=== PATIENT | female | born 1950 | race Caucasian/White ===

== ENCOUNTER 2017-08-28 10:55 | Day surgery (SDC) | payer OTHER ==
[~2017-08-28] VITALS: Ht 157.5 cm; Wt 69.9 kg
[~2017-08-28 10:55] MED LIST: ATOR20TA50 PO; BACL10TA PO; HYDR-4683 PO; IODIXANOL 320MG/ML 100ML BTL IV ONE; LIDOCAINE 2%HCL (LOCAL ANESTH.) INJ 20ML MDV ONE; PAR20T PO; TRAZ50TA2 PO; TRIA75TA55 PO
[2017-08-28] MEDS ORDERED: VERAPAMIL 2.5MG/ML INJ 2ML VIAL IV ONE (12:44)
[2017-08-28] MEDS ORDERED: MIDAZOLAM HCL 1MG/1ML-2 ML VIAL ONE (12:44)
[2017-08-28] MEDS ORDERED: fentaNYL CITRATE 100 MCG/2 ML VL ONE (12:44)
[2017-08-28] MEDS ORDERED: SODIUM CHL 0.9% 0 ML ONE (12:52)
[2017-08-28] MEDS ORDERED: ANGIOMAX 250 MG VIAL IV ONE (12:52)
[2017-08-28] MEDS ORDERED: HEPARIN 1,000 UNITS/ml 1ML VIAL ONE (13:06)
== END 2017-08-28 15:35 | disposition home or self-care (01) ==
LOC: CATH 10:55
PROVIDERS: ATTEND Internal Medicine
DX: I25.10 Atherosclerotic heart disease of native coronary artery without angina pectoris (principal); I99.8 Other disorder of circulatory system; E66.9 Obesity, unspecified; Z68.28 Body mass index [BMI] 28.0-28.9, adult; I10 Essential (primary) hypertension; E78.5 Hyperlipidemia, unspecified; E11.9 Type 2 diabetes mellitus without complications
CPT/HCPCS: 93458; C1769; C1894; J1644; J2250; J3010; J7030; Q9967; 99152

== ENCOUNTER → 2024-11-30 | Outpatient (CLI) | payer OTHER ==
[~2024-11-30] VITALS: Ht 160 cm; Wt 70.8 kg
[~2024-11-30] MED LIST changes: -HYDR-4683 PO; +HYDR-4833 PO; -IODIXANOL 320MG/ML 100ML BTL IV ONE; -LIDOCAINE 2%HCL (LOCAL ANESTH.) INJ 20ML MDV ONE; +TRAZ-227 PO; -TRAZ50TA2 PO
[2024-11-30] MEDS: REGADENOSON 0.4 MG/5 ML SYRG IV ONE ×2 (10:13→10:14)
--- NOTE | 2024-12-01 13:14 | DVHSR ---
APPROVED REPORT Exam: Nuclear Stress Test Indication: Chest Pain BMI: 0 Medical History Medical History: DM, High cholesterol, HTN, CHF, CVA Stress Test Details Stress Test: Pharmacologic stress testing performed using 0.4 mg of regadenoson per 5 mL given IV ov er 10 seconds. HR Resting HR: 66 bpmMax Heart Rate (APMHR): 148.878176 bpm Max HR Achieved: 95 bpmTarget HR (85% APMHR): 125.268634 bpm % of APMHR: 64.19 Recovery HR: 75 bpm BP Resting BP: 138/57 mmHg Recovery BP: 116/67 mmHg ECG Resting ECG: Sinus Rhythm Clinical Reason for Termination: Completed protocol Stress ECG Conclusion lvef 84% normal perfusion no severe ischemia noted NM EXAM: Myocardial Perfusion REST/STRESS Imaging Protocol: Rest Tc-99m/Stress Tc-99m 1 day Resting Data Rest SPECT myocardial perfusion imaging was performed in supine position 45 minutes following the int ravenous injection of 12.4 mCi of Tc-99m Sestamibi. Time of rest injection: 09:20 Date: 11/30/2024 Time of rest imagin:05 Date: 11/30/2024 Administration Route: IV Administration Site: Left Hand Pharmacologic Stress Pharmacologic stress test was performed by injecting Regadenoson 0.4 mg IV push followed by the intra venous injection of 30.2 mCi of Tc-99m Sestamibi. Time of stress injection: 10:15 Date: 11/30/2024 Time of stress imagin:15 Date: 11/30/2024 Administration Route: IV Administration Site: Left Hand Gated Stress SPECT was performed 60 minutes after stress injection. The images were gated to evaluate regional wall motion and calculate left ventricular ejection fracti on. Stress only was performed in the Supine position. Nuclear Conclusion Nuclear Findings: negative for ischemia lvef 84% normal perfusion no severe ischemia noted
== END | disposition home or self-care (01) ==
LOC: XYW 08:49
PROVIDERS: ATTEND Internal Medicine
DX: R07.9 Chest pain, unspecified (principal); I11.0 Hypertensive heart disease with heart failure; I50.9 Heart failure, unspecified; E11.9 Type 2 diabetes mellitus without complications; E78.00 Pure hypercholesterolemia, unspecified; Z86.73 Personal history of transient ischemic attack (TIA), and cerebral infarction without residual deficits
CPT/HCPCS: 78452; 93017; A9500; J2785